=== PATIENT | female | born 1970 | race Caucasian/White ===

== ENCOUNTER 2017-03-15 13:55 | Emergency (ER) | payer OTHER ==
[2017-03-15 14:01] VITALS: TEMP 98.2
--- NOTE | 2017-03-15 14:04 | EDPHY ---
H & P Time Seen by Provider: 03/15/17 14:00 HPI/ROS: CHIEF COMPLAINT: Irregular fast heartbeat HISTORY OF PRESENT ILLNESS: This patient is a 46 year old female complaining of an episode of rapid irregular heartbeat onset just prior to arrival. She states the episode lasted about 3.5 to 4 minutes, and she felt her heart "racing" with associated squeezing pain. She states the symptoms have since completely resolved, but the patient remains slightly tachycardic. She denies increased caffeine intake or recent stress, and states she has never experienced similar symptoms before. She states she spent one week in [place] recently, returning by car 03/12/17, three days ago. No recent illness, fever, chills, shortness of breath, nausea, vomiting, or other associated symptoms. She denies family history of cardiac disease or clotting disorders. REVIEW OF SYSTEMS: Constitutional: No fever, no chills Eyes: No visual changes ENT: No sore throat Respiratory: No cough, no shortness of breath Cardiac: No chest pain Gastrointestinal: No nausea, no vomiting, no abdominal pain Genitourinary: No hematuria, no dysuria Musculoskeletal: No leg pain or swelling Skin: No rash Neurological: No headache, no numbness, no weakness Psychiatric: No depression Past Medical/Surgical History: Asthma Hysterectomy Hypothyroid Social History: Nonsmoker. Occasional alcohol use. PCP Dr. Cyndi Grace Smoking Status: Never smoked Physical Exam: General Appearance: Alert, pleasant Eyes: Pupils equal and round, no conjunctival pallor or injection ENT, Mouth: Mucous membranes moist Neck: Normal inspection Respiratory: Lungs are clear to auscultation Cardiovascular: Regular tachycardia. No murmur Gastrointestinal: Abdomen is soft and non- tender Neurological: A&O, nonfocal, normal gait Skin: Warm and dry, no rash Extremities: Nontender, no pedal edema Psychiatric: Mood and affect normal Constitutional: Initial Vital Signs Temperature (C) 36.8 C 03/15/17 13:59 Heart Rate 117 H 03/15/17 13:59 Respiratory Rate 18 03/15/17 13:59 Blood Pressure 134/99 H 03/15/17 13:59 O2 Sat (%) 97 03/15/17 13:59 O2 Delivery Mode Room Air O2 (L/minute) 2 Allergies/Adverse Reactions: No Known Allergies Allergy (Unverified 08/07/13 15:41) Home Medications: Medication Instructions Recorded Proventil 08/07/13 SYNTHROID 08/07/13 Singulair 08/07/13 Medical Decision Making - Diagnostics EKG Interpretation: EKG interpreted by me reveals sinus tachycardia, rate 108, no ST/T changes. Poor R wave progression. Interpretation: normal EKG. Imaging Results: Imaging Impressions Chest/Thorax CTA 03/15/17 15:28 Impression: 1. No pulmonary embolism. 2. Clear lungs. ED Course/Re-evaluation: This patient is a 46 year old female presenting with regular tachycardia around 100bmp following an episode of irregular rapid heart rate earlier today. Physical exam is unremarkable other than her elevated heart rate. Stat EKG reveals sinus tachycardia. There is a and S1Q3T3 pattern on EKG. Plan for labs including D-dimer and TSH. Laboratory tests are normal. She remains tachycardia, with a heart rate of 100 to 110. Reassessed patient. She continues to be asymptomatic. On ambulation, the patient's heart rate spiked to 120 bpm. Although D-dimer is normal and she has no risk factors for pulmonary embolism, and concerned about the ongoing tachycardia and recent prolonged travel. Plan for CT angiogram to rule out pulmonary embolism. CT scan results discussed with the patient. Heart rate on discharge is 82. She is asymptomatic. Safe and stable for discharge. She will follow up with primary care physician for consideration of Holter monitoring. Differential Diagnosis: Differential diagnosis includes does not limited to pulmonary embolism, thyrotoxicosis, dehydration, stimulant use, severe anemia, SVT, AFib. - Data Points Laboratory Results: Laboratory Results 03/15/17 14:15 03/15/17 14:15 03/15/17 03/15/17 03/15/17 14:15 14:15 14:15 WBC 11.56 10^3/uL H 10^3/uL (3.80-9.50) RBC 5.14 10^6/uL 10^6/uL (4.18-5.33) Hgb 15.4 g/dL g/dL (12.6-16.3) Hct 45.5 % % (38.0-47.0) MCV 88.5 fL fL (81.5-99.8) MCH 30.0 pg pg (27.9-34.1) MCHC 33.8 g/dL g/dL (32.4-36.7) RDW 12.9 % % (11.5-15.2) Plt Count 278 10^3/uL 10^3/uL (150-400) MPV 8.9 fL fL (8.7-11.7) Neut % (Auto) 68.9 % % (39.3-74.2) Lymph % (Auto) 24.3 % % (15.0-45.0) Bullock % (Auto) 4.8 % % (4.5-13.0) Eos % (Auto) 0.8 % % (0.6-7.6) Baso % (Auto) 0.7 % % (0.3-1.7) Nucleat RBC Rel Count 0.0 % % (0.0-0.2) Absolute Neuts (auto) 7.97 10^3/uL H 10^3/uL (1.70-6.50) Absolute Lymphs (auto) 2.81 10^3/uL 10^3/uL (1.00-3.00) Absolute Monos (auto) 0.55 10^3/uL 10^3/uL (0.30-0.80) Absolute Eos (auto) 0.09 10^3/uL 10^3/uL (0.03-0.40) Absolute Basos (auto) 0.08 10^3/uL 10^3/uL (0.02-0.10) Absolute Nucleated RBC 0.00 10^3/uL 10^3/uL (0-0.01) Immature Gran % 0.5 % % (0.0-1.1) Immature Gran # 0.06 10^3/uL 10^3/uL (0.00-0.10) D-Dimer 0.36 ug/mLFEU ug/mLFEU (0.00-0.50) Sodium 139 mEq/L mEq/L (134-144) Potassium 3.9 mEq/L mEq/L (3.5-5.2) Chloride 104 mEq/L mEq/L (97-110) Carbon Dioxide 20 mEq/l L mEq/l (22-31) Anion Gap 15 mEq/L mEq/L (8-16) BUN 10 mg/dL mg/dL (7-23) Creatinine 0.7 mg/dL mg/dL (0.6-1.0) Estimated GFR > 60 Glucose 119 mg/dL H mg/dL (70-100) Calcium 9.8 mg/dL mg/dL (8.5-10.4) Troponin I < 0.012 ng/mL ng/mL (0-0.034) TSH 2.850 uIU/mL uIU/mL (0.465-4.680) Medications Given: Discontinued Medications Sodium Chloride (Ns) 1,000 mls @ 0 mls/hr IV ONCE ONE PRN Reason: Wide Open Stop: 03/15/17 14:35 Last Admin: 03/15/17 14:35 Dose: 1,000 mls Departure - Departure Disposition: Home, Routine, Self-Care Clinical Impression: Tachycardia Condition: Good Instructions: Tachycardia (ED) Additional Instructions: 1. Call your primary care physician today to make an appointment for follow up. 2. Return to the Emergency Department for recurrent episodes of rapid irregular heartbeat, difficulty breathing, nausea, or other worsening of condition. Referrals: Cyndi Armijo MD [Primary Care Provider] - As per Instructions Report Scribed for: Natalia Snow Report Scribed by: Alma Valdes Date of Report: 03/15/17 Time of Report: 14:03 Physician Review and Approval Statement: 03/15/17 14:03 Portions of this note were transcribed by a medical underwriter. I personally performed a history, physical exam, medical decision making, and confirmed accuracy of information the transcribed note.
--- NOTE | 2017-03-15 14:15 | CPEKG ---
Heart Rate: 108 RR Interval: 556 P-R Interval: 144 QRSD Interval: 90 QT Interval: 324 QTC Interval: 435 P Osprey: 59 QRS Osprey: 45 T Wave Osprey: 32 EKG Severity - BORDERLINE ECG - EKG Impression: SINUS TACHYCARDIA EKG Impression: PROBABLE LEFT ATRIAL ABNORMALITY Electronically Signed By: Natalia Snow 15-Mar-2017 20:54:53
[2017-03-15 14:29] LABS: % IMMATURE GRANULYOCYTES 0.5 % (0.0-1.1); ABSOLUTE IMMATURE GRANULOCYTES 0.06 10^3/uL (0.00-0.10); ADD DIFF? NO; ADD MORPH? NO; ADD SCAN? NO; ATYPICAL LYMPHOCYTE FLAG 10 (0-99); FRAGMENT RBC FLAG 0 (0-99); HEMATOCRIT 45.5 % (38.0-47.0); HEMOGLOBIN 15.4 g/dL (12.6-16.3); LEFT SHIFT FLG 0 (0-99); LIPEMIA HEMOLYSIS FLAG 90 (0-99); MEAN CELL HEMOGLOBIN CONCENTR. 33.8 g/dL (32.4-36.7); MEAN CELL VOLUME 88.5 fL (81.5-99.8); MEAN PLATELET VOLUME 8.9 fL (8.7-11.7); PLATELET CLUMPS FLAG 0 (0-99); PLATELET COUNT 278 10^3/uL (150-400); RED BLOOD CELL COUNT 5.14 10^6/uL (4.18-5.33); RED CELL DISTRIBUTION WIDTH 12.9 % (11.5-15.2)
[2017-03-15] MEDS ORDERED: NS 1,000 ML IV ONE (14:34)
[2017-03-15 14:37] VITALS: RESP 16
[2017-03-15 14:52] LABS: ANION GAP 15 mEq/L (8-16); CALCIUM 9.8 mg/dL (8.5-10.4); CARBON DIOXIDE 20 mEq/l (22-31); CHLORIDE 104 mEq/L (97-110); CREATININE 0.7 mg/dL (0.6-1.0); GLOMERULAR FILTRATION RATE > 60; GLUCOSE 119 mg/dL (70-100); POTASSIUM 3.9 mEq/L (3.5-5.2); SODIUM 139 mEq/L (134-144)
[2017-03-15 15:04] LABS: TROPONIN I < 0.012 ng/mL (0-0.034)
[2017-03-15] MEDS ORDERED: IOPAMIDOL (ISOVUE 370) 100 ML BTL IV ONE (15:48)
[2017-03-15 16:45] VITALS: BP 122/80; PULSE 89; O2SAT 96
== END 2017-03-15 16:42 | disposition home or self-care (01) ==
DX: R00.0 Tachycardia, unspecified (principal); J45.909 Unspecified asthma, uncomplicated
CPT/HCPCS: Q9967